=== PATIENT | female | born 1965 | race Caucasian/White ===

== ENCOUNTER 2016-12-18 21:29 | Emergency (ER) | payer OTHER ==
[~2016-12-18] VITALS: Ht 167.6 cm; Wt 114.2 kg
[~2016-12-18 21:29] MED LIST: ASPIR-LOW81 MG PO; ATIVAN0.5 MG PO; CALCIUM-MAGNES1 EA10 PO; CHERATUSSIN AC473 ML PO; CO Q-10200 MG PO; CYANOCOBALAM1000 MCG PO; DESYREL100 MG PO; FLONASE16 G1 BOTH NARES; IMODIUM MS REL1 EACH PO; KLONOPIN0.5 M1 PO; KLONOPIN1 MG PO; KRILL OIL500 MG PO; LEXAPRO10 MG PO; LEXAPRO20 MG PO; LO-DOSE ASPIRIN81 M1 PO; MOBIC7.5 MG PO; MUCINEX D ER T1 EACH PO; NIACIN 500 MG1 EACH PO; NORTREL1 EACH PO; PRILOSEC10 MG PO; PRILOSEC20 MG PO; PROAIR HFA8.5 GM IH; PROTONIX40 MG PO; TRAZODONE HCL300 MG PO; ULTRAM50 MG PO; VITAMIN B-125000 MC1 PO; VITAMIN D10000 UNIT PO; VITAMIN D35000 UNIT PO; WELLBUTRIN XL150 MG PO; ZOFRAN4 MG PO; ZYRTEC10 M1 PO; ZYRTEC10 M2 PO
[2016-12-18 23:57] LABS: HEMATOCRIT 40.8 % (36.0-46.0); MCH 29.2 PG (29.0-34.0); MCHC 33.8 G/DL (30.0-36.0); MCV 86.4 FL (83-99); MEAN PLAT.VOLUME 8.8 uM^3 (9.5-12.4); PLATELET COUNT 353 K/uL (156-360); RBC DIS.WIDTH-SD 40.5 % (39-53); RED BLOOD COUNT 4.72 M/uL (3.80-5.20); WHITE BLOOD COUNT 9.9 K/uL (4.1-10.2)
[2016-12-19 00:05] LABS: CHLORIDE 110 mEq/L (99-109); POTASSIUM 3.7 mEq/L (3.7-5.4); SODIUM 143 mEq/L (136-147)
[2016-12-19 00:07] LABS: GLUCOSE 97 mg/dL (70-99)
[2016-12-19 00:08] LABS: ANION GAP 7 MEQ/L (2-14)
[2016-12-19] MEDS ORDERED: XARELTO15 MG PO (00:08)
[2016-12-19] MEDS ORDERED: ULTRACET1 TABLET PO (00:09)
[2016-12-19 00:10] LABS: GFR ESTIMATE (CALCULATED) > 59 mL/min/
[2016-12-19 00:11] LABS: UREA NITROGEN (BUN) 10 mg/dL (9-23)
[2016-12-19 00:13] VITALS: BP 132/72
== END 2016-12-19 00:17 | disposition home or self-care (01) ==
LOC: EME 21:29
PROVIDERS: Physician Assistant
DX: I82.621 Acute embolism and thrombosis of deep veins of right upper extremity (principal)
CPT/HCPCS: 80048; 85027; 93971; 99281; 99284